=== PATIENT | female | born 1960 | race Caucasian/White ===

== ENCOUNTER → 2018-03-14 | Outpatient (CLI) | payer BC, OTHER | LOC: CIMAGING 10:18 | PROVIDERS: ATTEND Family Medicine | DX: S60.411A Abrasion of left index finger, initial encounter (principal); L08.89 Other specified local infections of the skin and subcutaneous tissue; M18.12 Unilateral primary osteoarthritis of first carpometacarpal joint, left hand; Z89.022 Acquired absence of left finger(s) | CPT/HCPCS: 73140-PO ==